=== PATIENT | male | born 1950 | race Caucasian/White ===

== ENCOUNTER 2016-07-15 06:27 | Day surgery (SDC) | payer MEDICARE, BC, OTHER ==
[~2016-07-15] VITALS: Ht 190.5 cm; Wt 144.2 kg
[~2016-07-15 06:27] MED LIST: ADVIL200 MG PO; ALPHA LIPOIC ACID PO; AMOXICILLIN 8751 TAB PO; B-121000 MCG PO; BACTROBAN 22GM22 GM TP; COZAAR100 MG PO; COZAAR50 MG PO; DALIRESP500 MCG PO; HYZAAR 25 MG-101 TAB PO; LECITHIN1200 M1 PO; PRILOSEC 20MG20 MG PO; RT SPIRIVA18 MCG IH; SPIRIVA18 MCG IH; STIOLTO RESPIMAT4 GM IH; THEO-24 30300 MG/CAP PO; THEO-24200 MG PO; TURMERIC500 MG PO; VENTOLIN0.09 MG IH; VITAMIN D31000 IU PO; ZYRTEC 10MG10 MG PO; [UNRECOGNIZED DRUG - OTHER] IH; inhaler
[2016-07-15 07:03] VITALS: BP 135/94; PULSE 86; TEMP 97.9
[2016-07-15] MEDS ORDERED: ASPIRIN E.C. 8181 MG PO (07:13)
[2016-07-15] MEDS ORDERED: PROAIR HFA0.09 MG/AC IH (07:14)
[2016-07-15] MEDS ORDERED: NATURE'S BLE1000 MCG PO (07:18)
[2016-07-15] MEDS ORDERED: ONE DAILY1 TA1 PO (07:18)
[2016-07-15] MEDS ORDERED: ALEVE 220MG220 MG PO (07:19)
[2016-07-15 08:20] VITALS: BP 118/78; PULSE 73
[2016-07-15 08:35] VITALS: BP 159/105; PULSE 69
[2016-07-15 08:50] VITALS: BP 158/101; PULSE 75
[2016-07-15 09:05] VITALS: BP 143/84; PULSE 78
== END 2016-07-15 09:20 | disposition home or self-care (01) ==
LOC: SDCO 06:27
DX: Z12.11 Encounter for screening for malignant neoplasm of colon (principal); D12.3 Benign neoplasm of transverse colon; Z86.010 Personal history of colon polyps; K57.30 Diverticulosis of large intestine without perforation or abscess without bleeding; J44.9 Chronic obstructive pulmonary disease, unspecified; K21.9 Gastro-esophageal reflux disease without esophagitis; I10 Essential (primary) hypertension; G47.33 Obstructive sleep apnea (adult) (pediatric); M19.90 Unspecified osteoarthritis, unspecified site; Z86.711 Personal history of pulmonary embolism; Z99.81 Dependence on supplemental oxygen; E66.01 Morbid (severe) obesity due to excess calories; Z79.82 Long term (current) use of aspirin; Z86.61 Personal history of infections of the central nervous system; Z79.899 Other long term (current) drug therapy; Z87.891 Personal history of nicotine dependence
CPT/HCPCS: OP; J2704; J7120

== ENCOUNTER 2017-03-13 13:00 | Outpatient (RCR) | payer MEDICARE, OTHER ==
[~2017-03-13 13:00] MED LIST changes: +ALEVE 220MG220 MG PO; +ASPIRIN E.C. 8181 MG PO; +NATURE'S BLE1000 MCG PO; +ONE DAILY1 TA1 PO; +PROAIR HFA0.09 MG/AC IH
== END 2017-03-14 08:32 ==
LOC: MKS.ESL.PT 13:00
DX: M25.511 Pain in right shoulder (principal)
CPT/HCPCS: G8990-GP; G8991-GP; G8992-GP

== ENCOUNTER 2019-11-16 12:49 | Emergency (ER) | payer MEDICARE, BC, OTHER ==
[~2019-11-16] VITALS: Ht 190.5 cm; Wt 133.6 kg
[2019-11-16 12:55] VITALS: TEMP 98
[2019-11-16 13:38] LABS: BASO # 0.1 (0.0-0.2); BASO % 0.6 % (0.0-2.0); EOS # 0.3 (0.0-0.7); GRAN # 5.9 (1.4-6.5); GRAN % 66.3 % (42.2-75.2); HEMATOCRIT 38.6 % (42.0-52.0); HEMOGLOBIN 12.7 g/dl (13.5-18.0); LYMPH # 1.9 (1.2-3.4); LYMPH % 21.5 % (20.0-51.0); MEAN CELL VOLUME 90 fl (80.0-100.0); MEAN CORPUSCULAR HEMOGLOBIN 30 pg (27.0-31.0); MEAN CORPUSCULAR HGB CONC 33 g/dl (33.0-37.0); MEAN PLATELET VOLUME 10.1 fl (7.4-10.4); MONO # 0.7 (0.1-0.6); MONO % 8.3 % (1.7-9.3); PLATELET COUNT 160 K/mm3 (130-400); RED BLOOD COUNT 4.28 M/mm3 (4.20-5.60); REDCELL DISTRIBUTION WIDTH-CV 15.1 % (11.5-14.5)
[2019-11-16 13:48] LABS: ALANINE AMINOTRANSFERASE 19 U/L (4-49); ALBUMIN 4.4 gm/dL (3.5-5.0); ALKALINE PHOSPHATASE 61 U/L (50-136); ANION GAP 8 mmol/L (7-16); AST,SGOT 22 U/L (15-37); BILIRUBIN,TOTAL 0.5 mg/dL (0.0-1.0); BLOOD UREA NITROGEN 34 mg/dL (9-20); CALCIUM 9.9 mg/dL (8.4-10.2); CARBON DIOXIDE 24 mmol/L (22-30); CHLORIDE 105 mmol/L (98-107); CREATININE, serum 0.95 (0.66-1.25); GLUCOSE 118 mg/dL (74-106); LIPASE 72 U/L (23-300); POTASSIUM 4.1 mmol/L (3.4-5.0); SODIUM 138 mmol/L (137-145); TOTAL PROTEIN 8.5 gm/dL (6.4-8.2)
[2019-11-16 14:01] LABS: TROPONIN-I < 0.012 ng/mL (0.000-0.035)
[2019-11-16] MEDS ORDERED: FLEXERIL 1010 MG/TAB PO (14:24)
[2019-11-16 14:53] VITALS: BP 148/88; PULSE 82
== END 2019-11-16 14:53 | disposition home or self-care (01) ==
LOC: COL.ER 12:49
PROVIDERS: Emergency Medicine
DX: M54.6 Pain in thoracic spine (principal); R79.1 Abnormal coagulation profile; J44.9 Chronic obstructive pulmonary disease, unspecified; Z87.891 Personal history of nicotine dependence; Z79.82 Long term (current) use of aspirin; Z86.711 Personal history of pulmonary embolism
CPT/HCPCS: J1885; Q9967

== ENCOUNTER → 2021-03-14 | Outpatient (CLI) | payer MEDICARE, BC, OTHER ==
[~2021-03-14] MED LIST changes: +FLEXERIL 1010 MG/TAB PO
== END ==
LOC: COL.RAD 13:13
DX: Z12.2 Encounter for screening for malignant neoplasm of respiratory organs (principal); Z87.891 Personal history of nicotine dependence

== ENCOUNTER 2021-07-08 09:20 | Inpatient (IN) | payer MEDICARE, BC, OTHER ==
[~2021-07-08] VITALS: Ht 190.5 cm; Wt 116.8 kg
[2021-07-08 10:09] LABS: ARTERIAL BLD GAS O2 SATURATION 92.3 % (92-100); ARTERIAL BLD GAS TCO2 CT 27.3; ARTERIAL BLOOD GAS BASE EXCESS 3.4 (-2-2); ARTERIAL BLOOD GAS HCO3 26.3 meq/L (22-26); ARTERIAL BLOOD GAS PCO2 34.3 mmHg (35-45); ARTERIAL BLOOD GAS PO2 60.7 mmHg (80-100)
[2021-07-08 10:48] LABS: HEMOGLOBIN 11.8 g/dl (13.5-18.0); MEAN CELL VOLUME 90 fl (80.0-100.0); MEAN CORPUSCULAR HEMOGLOBIN 29 pg (27-31); MEAN CORPUSCULAR HGB CONC 33 g/dl (33.0-37.0); MEAN PLATELET VOLUME 10.3 fl (7.4-10.4); PLATELET COUNT 156 K/mm3 (130-400); RED BLOOD COUNT 4.02 M/mm3 (4.20-5.60); REDCELL DISTRIBUTION WIDTH-CV 15.8 % (11.5-14.5)
[2021-07-08 10:51] LABS: HEMATOCRIT 36.3 % (42.0-52.0)
[2021-07-08 11:01] LABS: ALBUMIN 1.8 gm/dL (3.4-4.8); CALCIUM 8.3 mg/dL (8.4-10.2); CREATININE, serum 1.82 mg/dL (0.72-1.25); POTASSIUM 3.6 mmol/L (3.5-4.5)
[2021-07-08 11:07] LABS: TROPONIN-I 0.018 ng/mL (0.00-0.033)
[2021-07-08 11:23] LABS: BAND 1 % (0-10); LYMPHOCYTE 2 % (20.0-51.0); NEUTROPHILS 93 % (42.0-75.2)
[2021-07-08 11:24] LABS: ANISOCYTOSIS 1+; HYPOCHROMIA 1+; PLATELET ESTIMATE NORMAL (NORMAL)
[2021-07-08 12:23] LABS: INR 1.2 (0.8-3.0); PROTHROMBIN TIME 13.4 SECONDS (9.7-12.8)
[2021-07-08 12:25] LABS: PARTIAL THROMBOPLASTIN TIME 19.5 SECONDS (26.0-37.0)
[2021-07-08] MEDS ORDERED: SAW PALMETTO S450 MG PO (12:44)
[2021-07-08 12:45] LABS: C-REACTIVE PROTEIN 20.89 mg/dL (0.00-0.50)
[2021-07-08] MEDS ORDERED: OMEGA-3 FISH1000 MG PO (12:45)
[2021-07-08] MEDS ORDERED: THE MEDICINE S200 M2 PO (12:45)
[2021-07-08 12:57] LABS: THEOPHYLLINE 10.5 ug/mL (8.0-20.0)
[2021-07-08] MEDS ORDERED: PRILOSEC 20MG20 MG PO (13:56)
[2021-07-08] MEDS ORDERED: VOLTAREN GEL 1%1 TU TP (13:57)
[2021-07-08 15:48] VITALS: BP 89/47; BP 96/55; PULSE 107; TEMP 98
[2021-07-08 16:31] VITALS: BP 97/46; PULSE 103; TEMP 97.8
[2021-07-08 19:39] VITALS: BP 101/61; PULSE 94; TEMP 98.7
--- NOTE | 2021-07-08 23:10 | NUR ---
PER DAY SHIFT RN, THE PATIENT HAS REFUSED TO HAVE A JEFFERSON PLACED FOR ACCURATE I&O. IF THE PATIENT IS UNABLE TO USE THE URINAL APPROPRIATELY, WILL RECONSIDER ASKING AGAIN.
--- NOTE | 2021-07-08 23:25 | NUR ---
PT HAS NOT HAD ANY COMPLAINTS. STATES HE SHOULD HAVE A CPAP, HOWEVER HIS FAMILY IS PLANNING ON BRINGING IT TOMORROW. NO OTHER CONCERNS AT THIS TIME.
[2021-07-08 23:32] VITALS: BP 111/64; PULSE 95; TEMP 98.7
[2021-07-09 03:37] LABS: HEMOGLOBIN 10.1 g/dl (13.5-18.0); MEAN CELL VOLUME 88 fl (80.0-100.0); MEAN CORPUSCULAR HEMOGLOBIN 30 pg (27-31); MEAN CORPUSCULAR HGB CONC 34 g/dl (33.0-37.0); MEAN PLATELET VOLUME 10.1 fl (7.4-10.4); PLATELET COUNT 175 K/mm3 (130-400); RED BLOOD COUNT 3.37 M/mm3 (4.20-5.60); REDCELL DISTRIBUTION WIDTH-CV 15.6 % (11.5-14.5)
[2021-07-09 03:42] LABS: HEMATOCRIT 29.8 % (42.0-52.0)
[2021-07-09 03:50] VITALS: BP 110/65; PULSE 82; TEMP 97.7
[2021-07-09 04:09] LABS: ANISOCYTOSIS 1+; BAND 3 % (0-10); LYMPHOCYTE 5 % (20.0-51.0); NEUTROPHILS 90 % (42.0-75.2)
--- NOTE | 2021-07-09 07:01 | NUR ---
UNEVENTFUL NIGHT. PT SLEPT MAJORITY OF THE NIGHT. DENIES ANY PAIN. NO FURTHER CONCERNS, REPORT GIVEN TO ZHOU KIM
[2021-07-09 08:45] VITALS: BP 116/80; PULSE 114; TEMP 97.3
--- NOTE | 2021-07-09 10:01 | NUR ---
Assessment completed, alert/oriented, vital signs stable, denies pain, no resp.difficulty noted at rest but does get dypnic with little exertion, was on 8L. 02 but desaturated with exertion and now is on 15L high flow, lungs are diminsihed with some fine crackles to RLL, productive cough with brownish sputum/ sample sent to lab, he is incontinent of stool this morning and partially continent of urine, he is eating and drinkin without issue and ate a full breakfast, heart RRR and distal pulses are palpable, 2+ edema to BLE, ECHO done this morning, heparin gtt continues at 17ml/hr, working with PT/OT at this time, will continue to monitor
[2021-07-09 11:40] VITALS: BP 118/60; PULSE 106; TEMP 97.8
--- NOTE | 2021-07-09 13:30 | NUR ---
Tsa Screener attempted to contact patient by room phone as he is in isolation for COVID. Patient did not answer. SW then contacted patient's , Erika (ph#[phone]) to complete initial intake. Patient lives in [place] with his Erika and uses the [facility] ([facility]) for primary care. Patient does also see Dr. Rowe as a local primary care provider. Patient obtains medications from the [place]. Patient uses home oxgyen and CPAP from the [place] and is independent with ADLS. Patient has Advance Directives in EMR which designate his , Erika as DPOA-HC. Erika advised plan will be for patient to return home at time of discharge. PT ordered. Discharge Plan: Home
[2021-07-09 16:13] VITALS: BP 102/65; PULSE 113; TEMP 97.8
[2021-07-09 20:48] VITALS: BP 105/58; PULSE 68; TEMP 98.3
[2021-07-09 23:32] VITALS: BP 119/71; PULSE 100; TEMP 98.7
[2021-07-10 05:42] VITALS: BP 110/81; PULSE 87; TEMP 98.5
[2021-07-10 06:42] LABS: HEMOGLOBIN 10.3 g/dl (13.5-18.0); MEAN CELL VOLUME 89 fl (80.0-100.0); MEAN CORPUSCULAR HEMOGLOBIN 30 pg (27-31); MEAN CORPUSCULAR HGB CONC 33 g/dl (33.0-37.0); MEAN PLATELET VOLUME 10.3 fl (7.4-10.4); PLATELET COUNT 223 K/mm3 (130-400); RED BLOOD COUNT 3.49 M/mm3 (4.20-5.60); REDCELL DISTRIBUTION WIDTH-CV 15.9 % (11.5-14.5)
[2021-07-10 06:48] LABS: HEMATOCRIT 31.1 % (42.0-52.0)
[2021-07-10 06:59] LABS: ALBUMIN 1.7 gm/dL (3.4-4.8); BILIRUBIN,TOTAL 0.5 mg/dL (0.2-1.2); C-REACTIVE PROTEIN 10.32 mg/dL (0.00-0.50); CREATININE, serum 1.33 mg/dL (0.72-1.25); POTASSIUM 3.8 mmol/L (3.5-4.5); TOTAL PROTEIN 6.7 gm/dL (6.2-8.1)
--- NOTE | 2021-07-10 07:00 | NUR ---
PT LAYING IN BED. DENIES NEEDS AT THIS TIME.
[2021-07-10 08:11] VITALS: BP 123/69; PULSE 95; TEMP 97.6
--- NOTE | 2021-07-10 08:14 | NUR ---
PT ON 12L HFNC ALL SHIFT, UP TO BSC W/O ASSISTANCE FOR BM, USING URINAL APPROPRIATELY, HAD BM THIS SHIFT, UNABLE TO SEND SPECIMEN WAS MIXED WITH URINE. HR UP TO 130-140S WHEN OUT OF BED.
[2021-07-10 08:54] LABS: BAND 3 % (0-10); LYMPHOCYTE 3 % (20.0-51.0); NEUTROPHILS 92 % (42.0-75.2); PLATELET ESTIMATE NORMAL (NORMAL)
[2021-07-10 12:46] VITALS: BP 119/74; PULSE 107; TEMP 97.3
[2021-07-10 16:42] VITALS: BP 121/76; PULSE 92; TEMP 97.4
[2021-07-10 19:50] VITALS: BP 112/72; PULSE 146; TEMP 98.7
--- NOTE | 2021-07-10 22:00 | NUR ---
Pt is resting in bed, alert and oriented x 4, pt with tachycardia when moving from chair to bed or restroom. Telemetry in place, 11.5L o2 HFNC. Assessment completed, medications provided. No further needs at this time. Call light within reach.
[2021-07-11 00:32] VITALS: BP 129/68; PULSE 93; TEMP 98.1
[2021-07-11 04:45] VITALS: BP 128/75; PULSE 83; TEMP 97.5
[2021-07-11 06:39] LABS: MEAN CELL VOLUME 90 fl (80.0-100.0); MEAN CORPUSCULAR HGB CONC 33 g/dl (33.0-37.0); MEAN PLATELET VOLUME 9.9 fl (7.4-10.4); PLATELET COUNT 210 K/mm3 (130-400); RED BLOOD COUNT 3.31 M/mm3 (4.20-5.60); REDCELL DISTRIBUTION WIDTH-CV 15.8 % (11.5-14.5)
[2021-07-11 06:49] LABS: HEMATOCRIT 29.7 % (42.0-52.0); HEMOGLOBIN 9.8 g/dl (13.5-18.0); MEAN CORPUSCULAR HEMOGLOBIN 30 pg (27-31)
--- NOTE | 2021-07-11 07:09 | NUR ---
Patient had an uneventful night. Continues at 12 L O2. Report given to day RN.
[2021-07-11 07:42] LABS: NEUTROPHILS 99 % (42.0-75.2); PLATELET ESTIMATE NORMAL (NORMAL)
[2021-07-11 08:21] VITALS: BP 120/66; PULSE 76; TEMP 98.9
[2021-07-11 11:55] VITALS: BP 116/73; PULSE 80; TEMP 98.3
[2021-07-11 17:12] VITALS: BP 139/82; PULSE 81; TEMP 97.6
--- NOTE | 2021-07-11 19:41 | NUR ---
PT CONTINUED TO HAVE SOME EPISODES OF DIARRHEA.
[2021-07-11 20:29] VITALS: BP 140/80; PULSE 81; TEMP 97.6
--- NOTE | 2021-07-11 22:23 | NUR ---
ALERT AND OX3. DENIES CHEST PAIN OR DIZZY. SOA MOST OF THE TIME HE FEELS. IS HARD OF HEARING. PM MEDS GIVEN. BREIF ON. REMINDED TO CALL FOR ASST TO BR/COMMODE. CALL LIGHT WI REACH.
[2021-07-12 00:29] VITALS: BP 136/74; PULSE 74; TEMP 98.6
--- NOTE | 2021-07-12 01:57 | NUR ---
15 SEC BEAT OF SVT NOTED BY TELE. PT SLEEPING. LABS ORDERED FOR AM. MONITORING.
[2021-07-12 05:43] VITALS: BP 133/76; PULSE 55; TEMP 98.3
[2021-07-12 06:27] LABS: HEMOGLOBIN 10.4 g/dl (13.5-18.0); MEAN CELL VOLUME 91 fl (80.0-100.0); MEAN CORPUSCULAR HEMOGLOBIN 30 pg (27-31); MEAN CORPUSCULAR HGB CONC 33 g/dl (33.0-37.0); MEAN PLATELET VOLUME 10.1 fl (7.4-10.4); PLATELET COUNT 227 K/mm3 (130-400); REDCELL DISTRIBUTION WIDTH-CV 15.6 % (11.5-14.5)
[2021-07-12 06:44] LABS: CREATININE, serum 0.98 mg/dL (0.72-1.25); POTASSIUM 4.6 mmol/L (3.5-4.5)
[2021-07-12 06:52] LABS: HEMATOCRIT 31.8 % (42.0-52.0)
[2021-07-12 08:15] VITALS: BP 134/77; PULSE 113; TEMP 97.5
[2021-07-12 12:00] VITALS: BP 151/86; PULSE 116; TEMP 97.9
--- NOTE | 2021-07-12 16:11 | NUR ---
Commercial Pest Control Representative contacted patient's , Erika to discuss discharge planning. SW reviewed PT/OT recommendation and Erika is agreeable to have referrals sent to [facility]. Erika advised she will discuss placement with patient tonight. Discharge Plan: referrals sent to [facility] and [facility]
[2021-07-12 16:19] VITALS: BP 147/91; PULSE 95; TEMP 97.8
[2021-07-12 20:04] VITALS: BP 155/81; PULSE 97; TEMP 97.8
[2021-07-13] VITALS (7 sets, daily range): BP systolic 136–154; BP diastolic 77–97; PULSE 86–140; TEMP 97.6–98.5
--- NOTE | 2021-07-13 06:12 | NUR ---
PATIENT CALM AND COOPERATIVE THROUGHOUT THE NIGHT. NO NEW ISSUES NOTED OR REPORTED BY PATIENT.
[2021-07-13 08:05] LABS: ARTERIAL BLD GAS TCO2 CT 25.1; ARTERIAL BLOOD GAS BASE EXCESS 2.5 (-2-2); ARTERIAL BLOOD GAS HCO3 24.2 meq/L (22-26); ARTERIAL BLOOD GAS PCO2 28.4 mmHg (35-45); ARTERIAL BLOOD GAS PO2 57.1 mmHg (80-100); ARTERIAL BLOOD GAS pH 7.55 (7.35-7.45)
--- NOTE | 2021-07-13 11:48 | NUR ---
PT ASSESSED. NO COMPLAINTS OF PAIN OR DYSPNEA. NO SIGNS OR SYMPTOMS OF DISTRESS. CALL LIGHT WITHIN REACH.
--- NOTE | 2021-07-13 14:54 | NUR ---
Carbide Operator followed up with patient's , Erika who advised she spoke with patient and they would prefer to return home with Home Health services. Erika will follow up with on preference for agency after looking in to [email or web address].
[2021-07-14 03:52] VITALS: BP 147/86; PULSE 94; TEMP 98.6
--- NOTE | 2021-07-14 05:07 | NUR ---
PATIENT RESTING IN BED AT THIS TIME. NO NEW ISSUES NOTED OR REPORTED BY PATIENT.
[2021-07-14 07:28] LABS: HEMOGLOBIN 10.1 g/dl (13.5-18.0); MEAN CELL VOLUME 91 fl (80.0-100.0); MEAN CORPUSCULAR HEMOGLOBIN 30 pg (27-31); MEAN CORPUSCULAR HGB CONC 33 g/dl (33.0-37.0); MEAN PLATELET VOLUME 10.4 fl (7.4-10.4); PLATELET COUNT 220 K/mm3 (130-400); RED BLOOD COUNT 3.38 M/mm3 (4.20-5.60); REDCELL DISTRIBUTION WIDTH-CV 16.1 % (11.5-14.5)
[2021-07-14 07:35] LABS: HEMATOCRIT 30.6 % (42.0-52.0)
[2021-07-14 07:44] LABS: CALCIUM 7.7 mg/dL (8.4-10.2); CREATININE, serum 0.97 mg/dL (0.72-1.25); POTASSIUM 4.8 mmol/L (3.5-4.5)
[2021-07-14 08:14] VITALS: BP 128/80; PULSE 109; TEMP 97.8
[2021-07-14 08:16] LABS: ANISOCYTOSIS 1+; LYMPHOCYTE 5 % (20.0-51.0); NEUTROPHILS 91 % (42.0-75.2); PLATELET ESTIMATE NORMAL (NORMAL)
[2021-07-14 11:18] VITALS: BP 143/87; PULSE 115; TEMP 97.9
--- NOTE | 2021-07-14 12:15 | NUR ---
PATIENT'S BROUGHT IN A MACHINE FROM HOME THAT HE USES ON HIS LEGS AND PELVIS AREA FOR AN HOUR AT A TIME, DAILY TO HELP REMOVE/CIRCULATE FLUID IN HIS LOWER EXTREMITES. PATIENT STATES HE HASN'T BEEN ABLE TO USE THIS MACHINE FOR OVER A MONTH. PATIENT'S ASKED IF HE'D BE ABLE TO USE IT IF SHE BROUGHT IT IN FOR HIM AND RN STATED THAT STAFF WOULD HIM GET HOOKED UP TO IT. PATIENT USED MACHINE FOR HOUR SESSION AND STATED HE FELT MUCH BETTER AND NEEDED TO URINATE AFTERWARDS (THAT IT ALWAYS MAKES HIM HAVE TO URINATE AFTER). MACHINE IS IN LARGE TUBBERWARE YAN TOTE IN PATIENT'S ROOM.
[2021-07-14 17:01] VITALS: BP 137/84; BP 149/96; PULSE 111; TEMP 98.6
[2021-07-14 19:44] VITALS: BP 137/94; PULSE 104; TEMP 99
--- NOTE | 2021-07-14 23:29 | NUR ---
Patient resting in bed upon enter the room. Patient A/Ox3. Patient reports some back pain. Patient denies SOB. Patient currently on 15L high flow oxygen via NC. SPO2 98%. Titrated oxygen level down to 10L and SPO2 remained above 90%. All scheduled meds given per JUL. Repositioned patient in bed. Call light in reach. Will continue to monitor.
[2021-07-14 23:56] VITALS: BP 135/67; PULSE 107; TEMP 99.3
[2021-07-15 04:11] VITALS: BP 133/75; PULSE 98; TEMP 98.8
--- NOTE | 2021-07-15 06:14 | NUR ---
Titrated oxygen down to 8L this morning. SPO2 93% on 8L via HF NC. No acute respiratory distress noted at this time. Call light in reach. Will give report to day shift nurse.
[2021-07-15 08:47] VITALS: BP 138/75; PULSE 107; TEMP 98.8
--- NOTE | 2021-07-15 11:49 | NUR ---
PT ASSESSED. NO COMPLAINS OF PAIN AND IS MEDICATED PER MAR. NO COMPLAINTS OF DYSPNEA. NO OTHER CONCERNS AT THIS TIME. CALL LIGHT WITHIN REACH
[2021-07-15 12:55] VITALS: BP 130/66; PULSE 104; TEMP 98.3
[2021-07-15 18:15] VITALS: BP 129/79; PULSE 90; TEMP 98.7
[2021-07-15 19:19] VITALS: BP 109/81; PULSE 140; TEMP 98.9
[2021-07-15 23:41] VITALS: BP 168/93; PULSE 141; TEMP 97.4
[2021-07-16] VITALS (339 sets, daily range): BP systolic 44–133; BP diastolic 30–98; PULSE 81–140; TEMP 97.1–99; O2SAT 37–100
[2021-07-16 06:06] LABS: ARTERIAL BLD GAS O2 SATURATION 95.3 % (92-100); ARTERIAL BLD GAS TCO2 CT 25.8; ARTERIAL BLOOD GAS BASE EXCESS 1.3 (-2-2); ARTERIAL BLOOD GAS HCO3 24.7 meq/L (22-26); ARTERIAL BLOOD GAS PCO2 35.4 mmHg (35-45); ARTERIAL BLOOD GAS PO2 74.3 mmHg (80-100); ARTERIAL BLOOD GAS pH 7.46 (7.35-7.45)
[2021-07-16 06:50] LABS: HEMOGLOBIN 11.8 g/dl (13.5-18.0); MEAN CELL VOLUME 90 fl (80.0-100.0); MEAN CORPUSCULAR HEMOGLOBIN 30 pg (27-31); MEAN CORPUSCULAR HGB CONC 33 g/dl (33.0-37.0); MEAN PLATELET VOLUME 10.6 fl (7.4-10.4); REDCELL DISTRIBUTION WIDTH-CV 16.6 % (11.5-14.5)
[2021-07-16 06:55] LABS: CALCIUM 8.4 mg/dL (8.4-10.2); CREATININE, serum 1.67 mg/dL (0.72-1.25); MAGNESIUM 2.1 mg/dL (1.6-2.6)
--- NOTE | 2021-07-16 06:59 | NUR ---
COMMUNICATED WITH NIKOLAY RING THROUGHOUT THE SHIFT ABOUT PATIENTS STATUS. PATIENT REPORTED BACK PAIN AND WAS UNABLE TO GET IN A COMFORTABLE POSITION HE HAD PREVIOUSLY. PATIENT NOW REQUIRING 15L HIGH FLOW NC. PATIENT HAD A CHEST X-RAY PERFORMED DURING THE NIGHT AND AN ABG OBTAINED THIS AM. TWO CARDIZEM BOLUSES GIVEN THROUGHOUT THE SHIFT. PATIENT UP IN THE RECLINER AT THIS TIME. NO S/S OF DISTRESS.
[2021-07-16 07:13] LABS: PLATELET COUNT 383 K/mm3 (130-400)
[2021-07-16 07:51] LABS: BAND 7 % (0-10); LYMPHOCYTE 5 % (20.0-51.0); PLATELET ESTIMATE NORMAL (NORMAL)
[2021-07-16 08:00] LABS: NEUTROPHILS 85 % (42.0-75.2)
--- NOTE | 2021-07-16 09:45 | NUR ---
PT ASSED. COMPLAINS OF BACK PAIN AND IS MEDICATED PER MAR. COMPLAINS OF DYSPNEA AND O2 INCREASED TO 15 L HFNC. RT/DR CONLEY AT BEDSIDE. ICU TRANSFER ORDERS OBTAINED. REPORT CALLED. PT'S RASTA UPDATED WITH PLAN. CALL LIGHT WITHIN REACH. TRANSFER PENDING AT THIS TIME.
--- NOTE | 2021-07-16 10:25 | NUR ---
PT TRANSFERED DOWN FROM ROOM 304. PT IS IN COVID ISOLATION. PT TRANSFERED TO BED. PT ORIENTED TO ROOM AND FLOOR. PT INSTURCTED TO CALL WITH ALL NEEDS. PT ON 15L NC. PT IS ST ON TELE. BP STABLE. 1100 PT COMPLAINING OF NAUSEA. DEUCE LINK NOTIFIED OF NAUSEA AND HR. ORDERS RECEIVED FOR ZOFRAN. 1130 SPOKE WITH REGARDING CHEST TUBE. STATES WILL COME ONCE PICC LINE COMPLETE. 1200 PT DESATING TO 78%. PULSE OX CHANGED AND STILL IN THE 80'S. PT PLACED ON OXYMASK AT 15L NOW SATING 99%. WILL CONTINUE TO MONITOR.
--- NOTE | 2021-07-16 12:45 | NUR ---
SPOKE WITH SHAKIR EPPERSON WITH CARDIOLOGY REGARDING PT BEING ST IN THE 120-130'S. STATES SHE WILL NOTIFY . 1335 DR. MENDOZA ROUNDED ON PT. STATES HE WILL ADJUST MEDS FOR HEART RATE.
--- NOTE | 2021-07-16 12:54 | NUR ---
Cleaning And Maintenance Worker collaborated with Hospitalist who advised patient is moving to IMCU. SW discussed [facility] with Hospitalist and faxed referral to Erik at [facility] to review.
--- NOTE | 2021-07-16 14:29 | NUR ---
PT'S HR UP TO THE 150'S AT TIMES. SHAKIR RN WITH CARDIOLOGY PAGED. NOTIFIED OF ABOVE, STATES WILL LET KNOW AND GET SOMETHING ORDERED.
--- NOTE | 2021-07-16 17:16 | NUR ---
PT COUGHING UP BLACK SPUTUM WHICH APPEARS TO BE OLD BLOOD. NOTIFIED, ALSO NOTIFIED OF CT PLACEMENT, TACHYCARDIA, AND XRAY RESULTS. WILL ORDER XRAY, LABS, AND ABG FOR AM.
--- NOTE | 2021-07-16 18:39 | NUR ---
PT APPEARS MORE RESTLESS AND CONFUSED. PT STILL TACHYCARDIC IN THE 130'S. OTHER VSS. SPOKE WITH PRINCE LINK, WILL ORDER ABG.
[2021-07-16 19:04] LABS: ARTERIAL BLD GAS O2 SATURATION 91.8 % (92-100); ARTERIAL BLD GAS TCO2 CT 26.2; ARTERIAL BLOOD GAS BASE EXCESS 0.9 (-2-2); ARTERIAL BLOOD GAS HCO3 25.1 meq/L (22-26); ARTERIAL BLOOD GAS PCO2 38.2 mmHg (35-45); ARTERIAL BLOOD GAS PO2 65.8 mmHg (80-100); ARTERIAL BLOOD GAS pH 7.44 (7.35-7.45)
--- NOTE | 2021-07-16 19:22 | NUR ---
PT HAVING INCREASED BLACK SPUTUM. CALLED AND NOTIFIED OF INCREASED SPUTUM, CONFUSION, AND RESTLESSNESS. WILL HAVE PRINCE LINK EVALUATE. IF NEED TO INTUBATE WILL CALL ANESTHESIA. PRINCE LINK BEDSIDE TO EVAL. WILL CALL PT'S RASTA. REPORT GIVEN TO LONNY EPPERSON.
--- NOTE | 2021-07-16 19:50 | NUR ---
COUGHIN UP BLACK THIN SUBSTANCE DROOLING DOWN FACE TAUGHT PATIENT TO USE SUCTION YANKUER AND KEEP OXY MASK IN PLACE/ PATIENT WANTED WINDOWS OPEN AND PLEASE TURN OFF LIGHTS, PATIENT CONFUSED AND DISORIENTED
[2021-07-16 22:20] LABS: HEMOGLOBIN 10.4 g/dl (13.5-18.0); MEAN CORPUSCULAR HEMOGLOBIN 29 pg (27-31); MEAN CORPUSCULAR HGB CONC 30 g/dl (33.0-37.0); MEAN PLATELET VOLUME 11.4 fl (7.4-10.4); PLATELET COUNT 332 K/mm3 (130-400); RED BLOOD COUNT 3.56 M/mm3 (4.20-5.60)
[2021-07-16 22:21] LABS: MEAN CELL VOLUME 98 fl (80.0-100.0)
[2021-07-16 22:30] LABS: ALBUMIN 1.5 gm/dL (3.4-4.8); BILIRUBIN,TOTAL 2.4 mg/dL (0.2-1.2); CALCIUM 8.3 mg/dL (8.4-10.2); CREATININE, serum 3.37 mg/dL (0.72-1.25); TOTAL PROTEIN 6.1 gm/dL (6.2-8.1)
[2021-07-16 22:36] LABS: POTASSIUM 6.5 mmol/L (3.5-4.5)
[2021-07-16 22:59] LABS: ANISOCYTOSIS 1+; BAND 13 % (0-10); HYPOCHROMIA 3+; LYMPHOCYTE 8 % (20.0-51.0); NEUTROPHILS 70 % (42.0-75.2); PLATELET ESTIMATE NORMAL (NORMAL); SCHISTOCYTES 2+
--- NOTE | 2021-07-16 23:08 | NUR ---
Contacted [facility] and spoke with Jennifer. Patient is not a candidate for donation at this time. Referral #[id number]
--- NOTE | 2021-07-16 23:47 | NUR ---
AT 2014 IN PATIENT ROOM A THIRD TIME TO PLACE OXY MASK ON PATIENT. PATIENT REFUSED UNTIL SMALL LIGHT IN ROOM WAS OFF, UNABLE TO ORIENT PATIENT TO ROOM AND REASONING FOR OXY MASK/ PREPARING FOR INTUBATION AND VENTILATION, 2099 PATIENT UNABLE TO CONSENT FOR INTUBATION VENTILATION CAUSE OF CONFUSION BY PATIENT, SPOUSE CONTECTED, 2101 ANESTHIA ARRIVES ELIZABETH, 2105 PROPOFOL 100 MCQS AND SUCCS ADMINITERED IV BY ANATKALEE IV RIGHT UPPER ARM PICC 2106 INTBUTAION COMPLETE 25 AT TEETH COPIOUS AMOUNT OF BLACK FLUIDS SUCTIONED FROM ORAL CAVITY DURING INTUBATION AND AFTER, OG 16 FR PLACED AT 2110 50 CM STILL COPIOUS AMOUNTS OF BLACK SECRETION FROM OG TOTAL 3000 MLS. 2111 CARDIAC ARESTT AT 2111 CALLED 2112 EPI ADMINISTERED CPR IN PROGRESS, 2115 EPI ADMINISTERED CPR CONTINUES, EVERY 3RD 30 COMPRERSSION INTERVAL PULSE CHECK MEDS ADMINISTERED 2119 EPI [id number] PULSE CHECK MONOMORPHIC VTACH, PULSE RETURN, 2137 AMIOARONE BOLUS ADMINISTERED 116 MG, BEGINS, IV RBC BEING ADMINISTERED BEGINS BOTH IN RIGHT UPPER ARM PICC, 2154 AMARODARONE BOLUS COMPLETE SINUS RYTHUM VITALS RECORDED, 2156 CARDIAC ARREST CPR BEGINS, EPI ADMINISTERED IV CPR CONTINUES 2199 PULSE CHECK ASYSTOLE CPR CONTINUES, 2200 EPI ADMINISTERED PULSE CHECK PEA, RESUME CPR,2202 PULSE CHECK CPR CONTIUES 2203 EPI ADMINISTERED CPR CONTINUES,2206 PULSE RETURNS ROSC EVERY THIRD BEAT ON MONITOR 220 SPOUSE AT BEDSIDE, WAEK THREADY PULSES LOW VITALS SIGNS NO SATS FOUND/ PATIENT BEING VENTILATED SPOUSE DOES NOT WANT CPR ADMINSTERED ANYMORE 2210, ASYSTOLE AT 2247, 2249 VENTILATOR TURNED OFF, HOME CANTACTED
--- NOTE | 2021-07-17 04:10 | NUR ---
PT INTUBATED FOR AIRWAY PROTECTION. BAGGED PT FOR 1 1/2HRS DURING CODE BLUE. PT PLACED ON VENT BRIEFLY. PT REQUIRED BAGGING DUE TO SATS IN 50S WHILE ON VENT.
== END 2021-07-16 22:47 | disposition expired | DRG 871 ==
LOC: COL.ER 09:20 → MEDICAL 11:30 → ICU 07-16 10:55
PROVIDERS: Emergency Medicine; Internal Medicine; Internal Medicine Sleep Medicine; Physician Assistant; Student in an Organized Health Care Education/Training Program; ADMIT Internal Medicine
PROC: 5A0945A Assistance with Respiratory Ventilation, 24-96 Consecutive Hours, High Flow/Velocity Cannula (ICD-10-PCS; 2021-07-09)
PROC: 0W9930Z Drainage of Right Pleural Cavity with Drainage Device, Percutaneous Approach (ICD-10-PCS; principal; 2021-07-16)
PROC: 02HV33Z Insertion of Infusion Device into Superior Vena Cava, Percutaneous Approach (ICD-10-PCS; 2021-07-16)
PROC: 0BH17EZ Insertion of Endotracheal Airway into Trachea, Via Natural or Artificial Opening (ICD-10-PCS; 2021-07-16)
DX: A41.89 Other specified sepsis (principal); U07.1 COVID-19; J12.82 Pneumonia due to coronavirus disease 2019; J96.21 Acute and chronic respiratory failure with hypoxia; N17.9 Acute kidney failure, unspecified; J44.0 Chronic obstructive pulmonary disease with (acute) lower respiratory infection; J44.1 Chronic obstructive pulmonary disease with (acute) exacerbation; I82.403 Acute embolism and thrombosis of unspecified deep veins of lower extremity, bilateral; J93.9 Pneumothorax, unspecified; I10 Essential (primary) hypertension; N40.0 Benign prostatic hyperplasia without lower urinary tract symptoms; E86.0 Dehydration; I48.91 Unspecified atrial fibrillation; G72.9 Myopathy, unspecified; E87.5 Hyperkalemia; R19.7 Diarrhea, unspecified; Z87.891 Personal history of nicotine dependence; Z86.711 Personal history of pulmonary embolism; Z79.82 Long term (current) use of aspirin
CPT/HCPCS: 99223-AI; 99232-AI; 99233-AI; A7041; A9540; C1751; J0248; J0282; J0330; J0456; J0692; J0696; J1644; J1650; J1940; J2270; J2405; J2920; J2930; J7030; J7040; J7050; J7060; J8540; P9016